=== PATIENT | female | born 1945 | race Caucasian/White ===

== ENCOUNTER → 2016-10-17 | Outpatient (REF) ==
[~2016-10-17] MED LIST: LIPITOR20 MG PO; MULTIPLE VITAMI1 CAP PO; OMEGA-31 SGL PO; PRILOSEC 20MG20 MG PO; ZESTRIL40 MG PO
[2016-10-17 18:56] LABS: THYROID STIMULATING HORMONE 1.75 uIU/mL (0.465-4.680)
== END ==
LOC: ZLAB.WCH 18:03
PROVIDERS: Family Medicine
DX: Z01.89 Encounter for other specified special examinations (principal)

== ENCOUNTER → 2017-03-28 | Outpatient (REF) | LOC: ZLAB.WCH 08:37 | DX: Z01.89 Encounter for other specified special examinations (principal) ==

== ENCOUNTER → 2017-04-27 | Outpatient (REF) | LOC: ZLAB.WCH 18:08 | DX: Z01.89 Encounter for other specified special examinations (principal) ==

== ENCOUNTER → 2017-05-19 | Outpatient (REF) ==
[2017-05-19 18:43] LABS: IRON,SERUM 60 ug/dL (35-150)
[2017-05-19 18:53] LABS: TOTAL IRON BINDING CAPACITY 391 ug/dL (265-497)
== END ==
LOC: ZLAB.WCH 18:22
PROVIDERS: Family Medicine
DX: Z01.89 Encounter for other specified special examinations (principal)

== ENCOUNTER → 2017-06-16 | Outpatient (CLI) | payer MEDICARE, OTHER | LOC: COL.VAS 06-06 10:00 | DX: I27.21 Secondary pulmonary arterial hypertension (principal); I51.7 Cardiomegaly ==

== ENCOUNTER → 2017-08-16 | Outpatient (REF) | LOC: ZLAB.WCH 15:42 | DX: Z01.89 Encounter for other specified special examinations (principal) ==